=== PATIENT | female | born 1955 | race Caucasian/White ===

== ENCOUNTER → 2020-03-27 | Outpatient (CLI) | payer MEDICARE ==
--- NOTE | 2020-03-27 11:42 | KCIC ---
EXAMINATION: LOWER EXT JOINT WO LT INDICATIONS: Left knee pain, stiffness and limited range of motion for one year.. TECHNIQUE: Multiplanar multisequence MRI of the left knee was obtained without contrast. COMPARISON: None FINDINGS: MENISCI: There is a large radial tear of the posterior root lateral meniscus with 3 mm extrusion of the meniscal body. There is abnormal diffuse high signal extending through the body and anterior horn, which are globular in appearance. A small parameniscal cyst is adjacent to the anterior root lateral meniscus measuring 9 x 5 x 5 mm. The medial meniscus is intact. LIGAMENTS: The anterior and posterior cruciate ligaments are intact. Cruciate cysts seen in the anterior cruciate ligament. The medial collateral ligament and lateral collateral ligament complex including popliteus tendon and iliotibial band are intact. EXTENSOR MECHANISM: There is thickening and increased signal of the proximal and distal patellar tendon compatible with tendinopathy. The quadriceps tendon is intact. Fat pads are normal. Retinacula are intact. BONES AND CARTILAGE: No acute fracture. Marrow signal is normal. There is deep partial thickness cartilage loss at the trochlear groove and lateral trochlear facet. Superficial and deep partial-thickness cartilage loss along the patella with some probable small full thickness cartilage fissures. There is a large area of full-thickness cartilage loss along the central and posterior lateral femoral condyle. There is deep partial-thickness cartilage loss along the lateral tibial plateau. There is focal deep partial thickness cartilage loss along the inner central to posterior weightbearing medial femoral condyle. Superficial partial-thickness cartilage loss in the medial tibial plateau. Tricompartment osteophytes are noted. OTHER: Moderate joint effusion with mild synovitis. Small Azar cyst measuring approximately 4 cm in craniocaudal diameter by 1 cm in AP diameter. Muscles and remaining tendons are intact. Mild subcutaneous edema anteriorly. IMPRESSION: 1. Large radial tear of the posterior root lateral meniscus with extrusion of the meniscal body. Abnormal globular signal extending through the body and anterior horn lateral meniscus. Small parameniscal cyst at the anterior root lateral meniscus. 2. Tricompartment cartilage loss, greatest in lateral compartment where there is a large area of full-thickness cartilage loss. 3. Mild patellar tendinopathy. 4. Moderate joint effusion with mild synovitis. Small Azar cyst. Electronically signed by: Radha Hawley MD (03/27/2020 11:39 AM) [id number]
== END ==
LOC: KCIC MRI 08:32
PROVIDERS: ATTEND Orthopaedic Surgery
DX: M25.412 Effusion, left shoulder (principal); M71.22 Synovial cyst of popliteal space [Baker], left knee; M65.88 Other synovitis and tenosynovitis, other site
CPT/HCPCS: 73721